=== PATIENT | female | born 1955 | race Caucasian/White ===

== ENCOUNTER 2019-01-20 10:18 | Inpatient (IN) ==
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
[2019-01-20] MEDS ORDERED: ZOFRAN IV PRN (11:35)
[2019-01-20] MEDS ORDERED: NS 1,000 ML IV SCH (11:35)
[2019-01-20] MEDS ORDERED: TYLENOL PO PRN (11:35)
--- NOTE | 2019-01-20 12:22 | Diag Imaging Result Doc PS360 ---
EXAM: CT HEAD W/O CONTRAST 01/20/2019 HISTORY: CVA TECHNIQUE: This exam was performed using automated exposure control, adjustment of mA or kV according to patient size, and/or use of iterative reconstruction technique. COMMENT: There is no evidence of mass effect, bleed, or abnormal extra-axial fluid collection. There is minimal periventricular white matter lucency in the frontal lobes. This has not changed since 05/13/2012. The visualized paranasal sinuses are clear. The calvarium is intact. IMPRESSION: Minimal chronic microvascular white matter changes. No evidence of acute disease. Electronically signed by Frank Louie 01/20/2019 12:20 PM
[2019-01-20 12:31] LABS: URINE SOURCE CLEAN CATCH
[2019-01-20 12:35] LABS: BILIRUBIN URINE NEGATIVE (NEGATIVE); BLOOD URINE NEGATIVE (NEGATIVE); COLOR YELLOW; GLUCOSE URINE NEGATIVE (NEGATIVE); KETONE URINE NEGATIVE (NEGATIVE); LEUKOCYTES URINE NEGATIVE (NEGATIVE); NITRITE URINE NEGATIVE (NEGATIVE); PROTEIN URINE NEGATIVE (NEGATIVE); SP GRAVITY URINE 1.003; TURBIDITY URINE CLEAR (CLEAR); UROBILINOGEN URINE NORMAL (NORMAL)
[2019-01-20 12:36] LABS: UR EPITHELIAL CELLS <10 /HPF (<10); URINE BACTERIA NEGATIVE /HPF; URINE RBC <10 /HPF (<10); URINE WBC <10 /HPF (<10)
--- NOTE | 2019-01-20 13:36 | CONSULTATION ---
DATE OF CONSULTATION: 01/20/2019 HISTORY: Ms. Rosales is 63 years old and she has had some episodes of left-sided numbness with question of neurologic explanation. History from the patient is that she had first episode about 2 months ago. She reports noticing tingling over the left side of the face followed by tingling in the left 1st, 2nd and 3rd digits and then tingling in the left leg. Progression from face to leg was over a period of only several seconds. Duration of episode was about 10 minutes. During that time, she had difficulty using her left hand and she had gait difficulty because of either clumsiness or weakness in the left leg. She does not recall speaking during that time. She does not recall chewing or swallowing during that time. She did not notice any vision disturbance. She did not check her facial appearance in the mirror. She is certain there was no unconsciousness, altered awareness or memory gap. She had a 2nd identical episode a few weeks later. Third episode occurred early this morning and has persisted for 5 hours now with incomplete resolution. With each episode, she had significant bifrontal pounding headache beginning a few hours after the episode. She has not had identical headache at other times, but she has had occasional right or left retro- orbital pounding and pressure associated with nausea and photophobia, lasting part of a day or most of the day. She estimates these occur once or twice a month. She cannot report when current headache pattern began. She stopped hormone replacement about 15 years ago and does not know now if that corresponds to onset of headache problem. She gets incomplete relief with a dose of ibuprofen. Headache lasts longer if she does not treat it with ibuprofen. Caffeine intake is a cup of coffee and small serving of tea most days. She had a little bit of cola yesterday in addition to her usual caffeine. She has not had definite caffeine withdrawal symptoms. She has been treated for hypertension in the past. She was not taking blood pressure medicine recently. Blood pressure was recorded 192/[address] on [address]. Noncontrast CT is unremarkable today. Lab work is not reported yet. Carotid ultrasound and echocardiogram are ordered. She reports home medicines are bupropion and duloxetine. She takes occasional ibuprofen as above. She uses 3 different drops for glaucoma. PHYSICAL EXAMINATION: On exam, she is awake, alert, attentive, appropriate, oriented. Speech and language function are normal on bedside testing. Recent and remote memory good. Head and neck are unremarkable. Visual gould are full tested by confrontational finger counting. Extraocular movements are full. Facial motility is symmetric. She reports diminished pinprick appreciation over the left upper and lower lip and chin. Pinprick is symmetric over the forehead and scalp and neck. Gag is intact. Tongue is midline. She can hear. Shoulder shrug is good bilaterally. She has good power in the right limbs. I can overcome the left arm grading 4/5 at the deltoid. Tone is slightly increased in the left arm. She did rapid alternating movements a little better with the right hand than the left. She did well on [id number] testing bilaterally. She reports diminished pinprick appreciation over the left palm compared to the right. Proprioception is normal at the index finger MCP joint bilaterally. Proprioception is normal at the great toe MTP joint bilaterally. I did not test her gait. IMPRESSION: Minimal left hemiparesis, subjective left-sided numbness, sudden onset several hours ago followed by headache. She has history of 2 prior similar but much more brief episodes also followed by headache. She has history of episodic headache consistent with migraine. Migraine may be the explanation for current syndrome, but the duration of deficit is worrisome and she has risk factors for cerebrovascular ischemic problems. Negative CT is reassuring but would not exclude acute ischemic stroke. PLAN: 1. We will likely need to consider brain MRI. I will check on the carotid ultrasound and echocardiogram reports when available. We need to treat blood pressure cautiously until we have the vascular workup reported. If not checked recently as outpatient, we can check her lipid profile and consider a statin. 2. Depending on her clinical course and workup, if we do not determine this to be ischemic infarction, migraine is a consideration. Some of the progression of sensory symptoms from the face to the leg is consistent with sensory seizure and we might consider EEG later. Thanks for asking neurology to see Ms. Rosales. cc: MD Spike Diggs III, MD MTDD
[2019-01-20] MEDS ORDERED: CATAPRES PO PRN (15:59)
--- NOTE | 2019-01-20 16:06 | ECHO REPORT ---
ORDER DATE: 01/20/2019 ECHOCARDIOGRAM: INDICATION FOR THE STUDY: CVA. FINDINGS: 1. The right atrium appears normal in size. 2. Trace tricuspid regurgitation. RV systolic pressure of 31. 3. Normal RV size and systolic function. 4. No significant pulmonic insufficiency. 5. Normal left atrial size with a dimension of 3.8. 6. No mitral valve prolapse. Mild mitral regurgitation. 7. Normal LV size, end-diastolic dimension of 5.2. Normal wall thicknesses with a posterior and interventricular septal wall thickness of 1 cm each. Normal LV systolic function. Estimated EF is 60%. 8. Aortic valve opens well. It is trileaflet. Mild insufficiency, no stenosis. 9. Aorta appears normal in visualized segments. 10. There is no evidence of pericardial effusion. 11. On injection of agitated saline contrast, there was no evidence of significant [id number] shunting seen. cc: MD Spike Turner MD
[2019-01-21] MEDS: PRILOSEC PO SCH ×2 (05:48→06:15)
[2019-01-21 06:23] LABS: BASO# 0.02 X1000 (0.0-0.2); BASO% 0.3 % (0.0-0.8); EOS# 0.09 X1000 (0.0-0.7); EOS% 1.5 % (0.0-10.0); HEMATOCRIT 40.1 % (37.0-47.0); HEMOGLOBIN 12.8 g/dL (12.0-16.0); LYMPH# 1.89 X1000 (1.2-3.4); LYMPH% 32.4 % (20.5-51.1); MCHC 31.9 g/dL (33-37); MCV 90.7 FL (81-99); MONO# 0.37 X1000 (0.11-0.59); MONO% 6.3 % (1.7-9.3); MPV 10.1 FL (7.4-10.4); NEUT# 3.46 X1000 (1.4-6.5); NEUT% 59.5 % (42.2-75.2); PLT 207 X1000 (130-400); RBC 4.42 XMIL (4.2-5.4); WBC 5.83 X1000 (4.8-10.8)
[2019-01-21 06:32] LABS: INR 0.94; PROTIME 13.3 Seconds (11.0-16.0); PTT 30.3 Seconds (22.3-41.8)
[2019-01-21 07:07] LABS: ALB/GLOB RATIO 1.2; ALBUMIN 3.4 g/dL (3.5-5.0); CALCIUM 8.4 mg/dL (8.8-10.2); CREATININE 1.4 mg/dL (0.5-0.9); MAGNESIUM 1.9 mg/dL (1.5-2.7); POTASSIUM 4.5 mmol/L (3.5-5.1); TOTAL BILIRUBIN 0.25 mg/dL (0.20-1.00); TOTAL PROTEIN 6.2 g/dL (6.3-8.3)
--- NOTE | 2019-01-21 07:44 | EKG Report ---
Test Performed on : 01/21/2019 07:18:33 AM Test Reason : chest pain Blood Pressure : / mmHG Vent. Rate : 064 BPM Atrial Rate : 064 BPM P-R Int : 160 ms QRS Dur : 086 ms QT Int : 434 ms P-R-T Axes : -01 034 059 degrees QTc Int : 447 ms Normal sinus rhythm. Normal ECG When compared with ECG of 13-MAY-2012 10:33, No significant change was found Confirmed by Chloé MICHEL, Giovany ([id number]) on 01/21/2019 8:40:34 AM
--- NOTE | 2019-01-21 09:10 | PROGRESS NOTE ---
DATE: 01/21/2019 SUBJECTIVE: Ms. Rosales reports continued improvement, but still slight numbness over the left face. Headache has been present off and on in the last 24 hours but is not present right now. OBJECTIVE: Workup includes noncontrast CT of the head yesterday showing typical chronic white matter changes but nothing focal or acute, and no significant change compared to 2012 scan. Brain MRI is scheduled for today. Echocardiogram did not show source of embolus. Systolic blood pressures got as high as 220s after admission yesterday, but 140s-150s in the last 12 hours. She has been afebrile. Blood sugars have been 130s-170s. Creatinine is 1.4 without prior record in this computer for comparison. TSH is 4.72. PHYSICAL EXAMINATION: On exam, she reports diminished pinprick appreciation in a patchy territory around the left cheek and chin, less distinct than yesterday. Facial motility is symmetric. She reports normal pinprick appreciation symmetrically over the hands today. Tongue is midline. Speech is not dysarthric. Chewing and swallowing are not impaired on my observation during her breakfast this morning. IMPRESSION: Left sided symptoms almost completely resolved, associated headache. Migraine seems likely, but she has risk factors for cerebrovascular ischemic problems including likely diabetes mellitus, certainly hypertension, possibly dyslipidemia. The march of symptoms from face to fingers to leg is consistent with seizure, but that seems statistically less likely explanation for her recent episode. If the brain MRI is negative, I would label this episode likely migraine and treat her cerebrovascular ischemic disease risk factors aggressively. If MRI shows evidence of acute ischemic stroke to account for recent symptoms, I would treat blood sugar and cholesterol aggressively, treat blood pressure cautiously, add antiplatelet medicine if not contraindicated. If she has more episodes, we might consider EEG electively. Thanks for asking Neurology to see Ms. Rosales. cc: MD Spike Diggs III, MD MTDD
--- NOTE | 2019-01-21 09:47 | Diag Imaging Result Doc PS360 ---
EXAM: MRI BRAIN W/WO CONTRAST HISTORY: cva TECHNIQUE: MRI brain with and without intravenous contrast COMPARISON: None. FINDINGS: Axial, sagittal, and coronal images obtained in multiple sequences. These are followed by post contrasted images. No recent infarct. Mild periventricular increased signal on the T2 and FLAIR weighted images believed to be chronic microvascular ischemic changes. No hydrocephalus. No mass or midline shift. No enhancing lesion on the post contrasted images. Normal orbits. No sinus opacification and no air-fluid levels. IMPRESSION: Chronic microvascular ischemic changes, but no recent infarct. Electronically signed by Anirudh Tolentino 01/21/2019 9:44 AM
[2019-01-21 15:34] VITALS: BP 189/85
--- NOTE | 2019-01-21 21:26 | Carotid Study ---
DATE: 01/20/2019 PROCEDURE: Bilateral carotid duplex. REFERRING PHYSICIAN: Dr. Brown. INTERPRETING PHYSICIAN: Dr Orlando Francisco. TECH: [place]. INDICATIONS: Questionable CVA. OBSERVED DATA RIGHT LEFT Brachial Blood Pressure Carotid Pulse Bruits: Carotid/Sub DIAGRAM OF ULTRASOUND IMAGING R L RIGHT INT EXT INT EXT LEFT Keith (cm/s) Keith (cm/s) Subclavian 82/0 Subclavian 101/0 CCA Proximal 74/9 CCA Proximal 87/10 CCA Distal 69/12 CCA Distal 105/12 Bulb 55/9 Bulb 52/11 ICA Proximal 55/11 ICA Proximal 60/13 ICA Mid 54/7 ICA Mid 53/16 ICA Distal 79/20 ICA Distal 73/19 ECA 65/0 ECA 46/0 Vertebral 44/12 A Vertebral 20/6 A ICA/CCA Ratio 1.07 ICA/CCA Ratio 0.70 % Stenosis 0-39% % Stenosis 0-39% FINDINGS: No significant atherosclerotic changes noted in the bilateral carotid artery systems. cc: MD Spike Quintana MD
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
== END 2019-01-21 17:53 | disposition home health service (06) | DRG 103 ==
LOC: DIRADM 10:18 → 4N 11:20
PROVIDERS: ADMIT Emergency Medicine; ATTEND Emergency Medicine
CPT/HCPCS: 70450; 70553; 80053; 81001; 82550; 82948; 83735; 84443; 84484; 85025; 85610; 85730; 93005; 93010; 93306; 93880; A9270; A9579; J7030; XXXXX